=== PATIENT | female | born 1995 | race Caucasian/White ===

== ENCOUNTER 2021-06-24 07:28 | Emergency (ER) | payer MEDICAID ==
[~2021-06-24] VITALS: Ht 170.2 cm; Wt 79.4 kg
[2021-06-24] MEDS ORDERED: HYDROCODONE/APAP 5-325MG TABLET PO ONE (07:45)
[2021-06-24] MEDS ORDERED: IBUPROFEN 600 MG TABLET PO ONE (07:45)
[2021-06-24] MEDS ORDERED: IBUPROFEN 600 MG TABLET ONE (07:54)
[2021-06-24] MEDS ORDERED: HYDROCODONE/APAP 5-325MG TABLET ONE (07:55)
--- NOTE | 2021-06-24 08:07 | NUR ---
Dr Redding at the bedside for MSE.
--- NOTE | 2021-06-24 08:12 | NUR ---
Place dressing to Rt middle finger per Md order.
--- NOTE | 2021-06-24 08:18 | NUR ---
Patient discharged to home in stable condition. Written and verbal after care instructions given. Patient verbalizes understanding of instructions. Stressed follow up or return to ER for worsening s/s.
[2021-06-24 08:19] VITALS: BP 121/68
== END 2021-06-24 08:19 | disposition home or self-care (01) ==
LOC: ER 07:28
DX: S61.302A Unspecified open wound of right middle finger with damage to nail, initial encounter (principal); W01.0XXA Fall on same level from slipping, tripping and stumbling without subsequent striking against object, initial encounter; Y92.89 Other specified places as the place of occurrence of the external cause
CPT/HCPCS: 73110; 73130; A4663